=== PATIENT | male | born 1930 | race Caucasian/White ===

== ENCOUNTER 2016-09-21 03:30 | Emergency (ER) | payer OTHER ==
[~2016-09-21] VITALS: Ht 165.1 cm; Wt 71.2 kg
[2016-09-21 03:48] VITALS: BP 105/68
--- NOTE | 2016-09-21 04:01 | PHYS DOC ---
Past History Past Medical History: Diabetes, Hypertension, Prostatitis Past Surgical History: Appendectomy, Coronary Bypass Surgery Alcohol Use: None Drug Use: None Adult General Chief Complaint Chief Complaint: BLOOD IN URINE HPI HPI Patient is a 86 year old M who presents with hematuria. Patient states he's been having blood in his urine for the past day however woke up tonight and felt extremely weak and wanted to come the hospital. Patient saw on any blood thinners. Patient has no history of kidney stones. Patient denies any dysuria. Patient denies any fevers. Patient denies abdominal pain. Patient denies any chest pain or shortness of breath. Review of Systems Review of Systems GEN: Denies fevers, chills, sweats HEENT: Denies blurred vision, sore throat CV: Denies chest pain RESP: Denies shortness of air, cough GI: Denies n/v/d : Blood in his urine NEURO: Denies confusion, dizziness MSK: Denies weakness, joint pain/swelling Allergies Allergies Allergies Coded Allergies Type Severity Reaction Last Updated Verified Penicillins Allergy Unknown 04/02/16 Yes Physical Exam Physical Exam GEN.: No apparent distress. Alert and oriented. HEENT: Head is normocephalic, atraumatic NECK: Supple. LUNGS: CTAB. HEART: RRR, 4/6 systolic ejection murmur. Peripheral pulses intact ABDOMEN: Soft, nontender. Positive bowel sounds. EXTREMITIES: Without any cyanosis. NEUROLOGIC: Normal speech, normal tone PSYCHIATRIC: Normal affect, normal mood. SKIN: No ulcerations Current Patient Data Vital Signs Vital Signs Date Time Temp Pulse Resp B/P (MAP) Pulse Ox O2 Delivery O2 Flow Rate FiO2 09/21/16 03:48 98.2 64 16 100 Room Air EKG EKG Not performed [] Radiology/Procedures Radiology/Procedures [address] [address] IMAGING REPORT Signed PATIENT: NICHO HOOK ACCOUNT: [id number] : 1930 LOCATION: ER AGE: 86 SEX: M EXAM STATUS: REG ER ORD. PHYSICIAN: DAVID CASTILLO DO REASON: hematuria PROCEDURE: CT ABDOMEN PELVIS WO CONTRAST INDICATION: 105707.001 Creat. 1.8, w/o contrast. Hematuria, weakness, lower back pain today. Hx: Prostatitis, appendectomy, CABG. No priors. COMPARISON: None. TECHNIQUE: Axial CT images were obtained through the abdomen and pelvis without intravenous contrast. Limited assessment of solid organ structures and vasculature secondary to lack of intravenous contrast. One or more of the following individualized dose reduction techniques were utilized for this examination: 1. Automated exposure control; 2. Adjustment of the mA and/or kV according to patient size; 3. Use of iterative reconstruction technique. FINDINGS: There is some scattered lung nodules at the lung bases measuring up to about 4 mm. Linear opacities lower lungs. Coronary artery calcific atherosclerosis and aortic valve calcifications partially seen. Severe calcific atherosclerosis. Small fat-containing right inguinal hernia. No intrahepatic bile duct dilation. No peripancreatic edema. Spleen unremarkable. Multiple low-attenuation lesions in the bilateral kidneys measuring up to about 3 cm. Some of the larger 1's have the appearance of cysts and others are not well characterized on this exam. Possible 2 mm nonobstructive right renal stone. On the right side of the urinary bladder there is a high density structure seen on the right measuring up to 55 x 30 mm. Prostate is mildly prominent. Colonic diverticulosis. Appendix not well seen. Fat-containing umbilical hernia. There are couple of mildly prominent loops of small bowel in the right side of the abdomen measuring up to about 29 mm. Degenerative changes of spine. Degenerative changes of the right greater than left hip. Osseous demineralization.. [id number] T12 compression fracture. IMPRESSION: 1. High density material at the posterior lateral aspect of the urinary bladder on the right. Could be secondary to blood within the urinary bladder or a mass. 2. T12 compression fracture. If there is pain within the region this could be acute. If the age is unknown clinically MRI or bone scan could further evaluate. 3. Low-attenuation lesions in the bilateral kidneys. Some of the larger 1's have the appearance of cystic lesions but cannot exclude complex component on noncontrast exam. Either a follow-up CT, MRI or ultrasound renal protocol could further evaluate for complex component. 4. Multiple lung base nodules measuring up to 4 mm. 5. Couple of mildly prominent loops of small bowel in the right side of the abdomen but no high-grade transition point to suggest obstruction. Fleischner Society recommendation for solid lung nodule follow up. (Radiology 2005; 237; 395-400): In a low risk patient: <4mm - No follow up required. >4-6mm- 12 month follow up, if unchanged, no further follow up. >6-8mm- 6-12 month follow up, then at 18-24 months if no change. >8mm- 3, 9, 24 month follow up or consideration of PET/CT. In a high risk patient (history of smoking or other known risk factors): <4mm - 12 month follow up, if unchanged then no further follow up. >4-6mm- 6-12 month follow up, then at 18-24 months if no change. >6-8mm- 3-6 month follow up, then at 9-12 months and 24 months if no change >8mm- Same as for low risk patient. Electronically signed by: Chucho Trejo MD (09/21/2016 6:36 AM) [facility] DICTATED AND SIGNED BY: CHUCHO TREJO MD DATE: 09/21/16620 CC: MATT RAJAN MD; [facility]; DAVID CASTILLO DO ~ [] Course & Med Decision Making Course & Med Decision Making Pertinent Labs and Imaging studies reviewed. (See chart for details) ED course: Patient was seen and examined emergency room CBC, CMP, lipase, UA, CT scan abdomen and pelvis without contrast was ordered 0600: Care has been transitioned to Dr. Rajan who will follow-up on [labs], [ radiology], and final disposition of the patient. I took over care of patient at [address] Castillo. Patient's labs were reviewed and patient's CT scan showed results of possible mass versus blood clots in the patient's bladder. A Ochoa catheter was inserted into the bladder and patient was irrigated with removal of clots. Patient's urine was clearing upon irrigation of 1 L of fluids. The patient is in no acute distress at this time. I spoke with the patient, his , and son regarding plan of care. The patient is appropriate for outpatient follow-up at this time. The patient was referred to [facility]. Recommended follow-up in 3-4 days. I also recommended that the patient follow- up with his primary doctor tomorrow for reevaluation. Advised oral hydration and to avoid any use of blood thinning medication including aspirin until symptoms have resolved and he has obtained follow-up. Advised return emergency department for any worsening symptoms. Patient and patient's family voiced understanding and in agreement with treatment plan. [] Dragon Disclaimer Dragon Disclaimer This chart was dictated in whole or in part using Voice Recognition software in a busy, high-work load, and often noisy Emergency Department environment. It may contain unintended and wholly unrecognized errors or omissions. Departure Departure: Impression: Primary Impression: Hematuria Additional Impressions: Lung nodules Kidney cysts Disposition: HOME, SELF-CARE Condition: IMPROVED Referrals: [facility] (PCP) Patient Instructions: Hematuria, Adult Additional Instructions: Follow up with your primary care doctor tomorrow. Call to schedule an appointment with [facility] at [facility] in the next 3-4 days. Their phone number is . Drink plenty of fluids and avoid use of any blood thinners including aspirin until your symptoms have resolved and you have been reevaluated. Your CT imaging also showed evidence of lung nodules and kidney cysts that will need to be followed up with repeat imaging as ordered by your primary doctor. Return to the emergency department for any worsening symptoms. Problem Qualifiers Primary Impression: Hematuria Hematuria type: gross Qualified Codes: R31.0 - Gross hematuria DAVID CASTILLO DO Sep 21, 2016 04:01 MATT RAJAN MD Sep 21, 2016 07:23
[2016-09-21] MEDS ORDERED: CONTRAST GIVEN MC PRN (04:15)
[2016-09-21] MEDS ORDERED: IOHEXOL 300 MG/ML 75 ML VIAL. IV ONE (04:30)
[2016-09-21 05:32] LABS: BASO # 0.1 x10^3/uL (0.0-0.2); BASO % 1 % (0-3); EOS # 0.2 x10^3/uL (0.0-0.7); EOS % 2 % (0-3); HEMATOCRIT 40.8 % (39.0-53.0); HEMOGLOBIN 14.1 g/dL (13.0-17.5); LYMPH # 2.3 x10^3/uL (1.0-4.8); LYMPH % 25 % (24-48); MEAN CORPUSCULAR HEMOGLOBIN 33 pg (25-35); MEAN CORPUSCULAR HGB CONC 35 g/dL (31-37); MEAN CORPUSCULAR VOLUME 95 fL (79-100); MONO # 1.5 x10^3/uL (0.0-1.1); MONO % 16 % (0-9); NEUT # 5.2 x10^3uL (1.8-7.7); NEUT % 57 % (31-73); PLATELET COUNT 226 x10^3/uL (140-400); RED BLOOD COUNT 4.28 x10^6/uL (4.30-5.70); RED CELL DISTRIBUTION WIDTH 12.5 % (11.5-14.5); WHITE BLOOD COUNT 9.2 x10^3/uL (4.0-11.0)
[2016-09-21 05:40] LABS: ALBUMIN 3.4 g/dL (3.4-5.0); ALBUMIN/GLOBULIN RATIO 0.9 (1.0-1.7); CALCIUM 8.9 mg/dL (8.5-10.1); CREATININE 1.8 mg/dL (0.7-1.3); TOTAL BILIRUBIN 0.8 mg/dL (0.2-1.0); TOTAL PROTEIN 7.2 g/dL (6.4-8.2)
[2016-09-21 05:51] LABS: CLARITY,URINE BLOODY; COLOR,URINE RED; GLUCOSE,URINE NEG (NEG); NITRITE,URINE POS (NEG)
[2016-09-21 05:52] LABS: BACTERIA,URINE MANY /HPF (0-FEW); RBC,URINE TNTC /HPF (0-2); SQUAMOUS EPITHELIAL CELL,UR OCC /LPF; WBC,URINE 20-40 /HPF (0-4)
--- NOTE | 2016-09-21 06:40 | RAD ---
INDICATION: 230903.001 Creat. 1.8, w/o contrast. Hematuria, weakness, lower back pain today. Hx: Prostatitis, appendectomy, CABG. No priors. COMPARISON: None. TECHNIQUE: Axial CT images were obtained through the abdomen and pelvis without intravenous contrast. Limited assessment of solid organ structures and vasculature secondary to lack of intravenous contrast. One or more of the following individualized dose reduction techniques were utilized for this examination: 1. Automated exposure control; 2. Adjustment of the mA and/or kV according to patient size; 3. Use of iterative reconstruction technique. FINDINGS: There is some scattered lung nodules at the lung bases measuring up to about 4 mm. Linear opacities lower lungs. Coronary artery calcific atherosclerosis and aortic valve calcifications partially seen. Severe calcific atherosclerosis. Small fat-containing right inguinal hernia. No intrahepatic bile duct dilation. No peripancreatic edema. Spleen unremarkable. Multiple low-attenuation lesions in the bilateral kidneys measuring up to about 3 cm. Some of the larger 1's have the appearance of cysts and others are not well characterized on this exam. Possible 2 mm nonobstructive right renal stone. On the right side of the urinary bladder there is a high density structure seen on the right measuring up to 55 x 30 mm. Prostate is mildly prominent. Colonic diverticulosis. Appendix not well seen. Fat-containing umbilical hernia. There are couple of mildly prominent loops of small bowel in the right side of the abdomen measuring up to about 29 mm. Degenerative changes of spine. Degenerative changes of the right greater than left hip. Osseous demineralization.. Thpd-iq-bilwnaeo T12 compression fracture. IMPRESSION: 1. High density material at the posterior lateral aspect of the urinary bladder on the right. Could be secondary to blood within the urinary bladder or a mass. 2. T12 compression fracture. If there is pain within the region this could be acute. If the age is unknown clinically MRI or bone scan could further evaluate. 3. Low-attenuation lesions in the bilateral kidneys. Some of the larger 1's have the appearance of cystic lesions but cannot exclude complex component on noncontrast exam. Either a follow-up CT, MRI or ultrasound renal protocol could further evaluate for complex component. 4. Multiple lung base nodules measuring up to 4 mm. 5. Couple of mildly prominent loops of small bowel in the right side of the abdomen but no high-grade transition point to suggest obstruction. Fleischner Society recommendation for solid lung nodule follow up. (Radiology 2005; 237; 395-400): In a low risk patient: <4mm - No follow up required. >4-6mm- 12 month follow up, if unchanged, no further follow up. >6-8mm- 6-12 month follow up, then at 18-24 months if no change. >8mm- 3, 9, 24 month follow up or consideration of PET/CT. In a high risk patient (history of smoking or other known risk factors): <4mm - 12 month follow up, if unchanged then no further follow up. >4-6mm- 6-12 month follow up, then at 18-24 months if no change. >6-8mm- 3-6 month follow up, then at 9-12 months and 24 months if no change >8mm- Same as for low risk patient. Electronically signed by: Rafa Ventura MD (09/21/2016 6:36 AM) [facility]
== END 2016-09-21 07:40 | disposition home or self-care (01) ==
LOC: ER 03:30
DX: R31.9 Hematuria, unspecified (principal); R91.8 Other nonspecific abnormal finding of lung field; N28.1 Cyst of kidney, acquired; E11.9 Type 2 diabetes mellitus without complications; I10 Essential (primary) hypertension; Z90.49 Acquired absence of other specified parts of digestive tract; Z95.1 Presence of aortocoronary bypass graft; Z88.0 Allergy status to penicillin
CPT/HCPCS: 36415; 51702; 74176; 80053; 81001; 83690; 85027; 87086; 99285-25

== ENCOUNTER 2017-02-16 14:08 | Emergency (ER) | payer OTHER ==
[~2017-02-16] VITALS: Ht 165.1 cm; Wt 71.2 kg
[2017-02-16] MEDS ORDERED: IV NORMAL SALINE 500ML 500 ML IV ONE (14:30)
--- NOTE | 2017-02-16 14:46 | EKG ---
[address] [address] Test Date: 2017-02-16 Test Time: 14:40:02 Pat Name: NICHO HOOK Department: Room: Gender: M Home Care Physical Therapist: JILLIAN : 1930 Requested By: MAXIMILIAN FRANCE Order Number: [id number] Reading MD: González Matson Measurements Intervals [place] Rate: 75 P: -59 RI: 214 QRS: 83 QRSD: 112 T: 56 QT: 402 QTc: 452 Interpretive Statements SINUS RHYTHM LOW LIMB LEAD VOLTAGE QRS(T) CONTOUR ABNORMALITY CONSIDER ANTEROLATERAL MYOCARDIAL DAMAGE POSSIBLY ABNORMAL ECG Electronically Signed On 02-20-2017 10:58:11 [facility]UNTER by González Matson
[2017-02-16 14:57] LABS: BASO % 0 % (0-3); EOS # 0.1 x10^3/uL (0.0-0.7); EOS % 1 % (0-3); HEMOGLOBIN 15.2 g/dL (13.0-17.5); LYMPH # 1.7 x10^3/uL (1.0-4.8); LYMPH % 15 % (24-48); MEAN CORPUSCULAR HEMOGLOBIN 34 pg (25-35); MEAN CORPUSCULAR HGB CONC 35 g/dL (31-37); MEAN CORPUSCULAR VOLUME 95 fL (79-100); MONO # 1.6 x10^3/uL (0.0-1.1); MONO % 14 % (0-9); NEUT # 7.9 x10^3uL (1.8-7.7); NEUT % 70 % (31-73); PLATELET COUNT 237 x10^3/uL (140-400); RED BLOOD COUNT 4.53 x10^6/uL (4.30-5.70); RED CELL DISTRIBUTION WIDTH 12.7 % (11.5-14.5); WHITE BLOOD COUNT 11.3 x10^3/uL (4.0-11.0)
[2017-02-16 15:08] LABS: CALCIUM 9.1 mg/dL (8.5-10.1); POTASSIUM 3.7 mmol/L (3.5-5.1)
--- NOTE | 2017-02-16 15:26 | RAD ---
PQRS Compliance Statement: One or more of the following individualized dose reduction techniques were utilized for this examination: 1. Automated exposure control 2. Adjustment of the mA and/or kV according to patient size 3. Use of iterative reconstruction technique CT head and cervical spine without contrast 02/16/2017 2:49 PM INDICATION: Headache, dizziness and neck stiffness. COMPARISON: None available TECHNIQUE: Multiple axial CT images of the head were obtained from skull base through the vertex without intravenous contrast. Multiple axial CT images of the cervical spine were obtained without intravenous contrast. Coronal and sagittal reformats are provided. FINDINGS: Head: Ventricles, sulci and basal cisterns are prominent, compatible with generalized cerebral volume loss. There is low attenuation the periventricular white matter compatible with chronic small vessel ischemic changes.. There is no hydrocephalus. Rueda-white matter differentiation is normal. There is no acute intracranial hemorrhage. There is no mass, mass effect or midline shift. Posterior fossa is normal in appearance. Visualized portions of the orbits are normal. Paranasal sinuses are well aerated. Mastoid air cells are well aerated. Scalp and calvaria are normal. Cervical spine: Alignment of the cervical spine is normal. Skull base is intact. Craniocervical junction is normal in appearance. Atlantoaxial articulation is normal. Vertebral body heights are maintained without evidence for acute fracture. There is anterolisthesis of C3 on C4 with minimal retrolisthesis of C4 on C5 and C5 on C6. Lucencies involving the C3, C4, C5 and C6 vertebral bodies may be secondary to osteopenia, however underlying process such as biloma may have similar appearance. No definite acute fracture. Severe cervical spondylosis is present. Moderate multilevel facet arthropathy. There is mild to moderate spinal canal stenosis from C3-C4 through C6-C7. There is minimal anterolisthesis of C7 on T1. Tonsilloliths are identified in the right palatine tonsil. There is a 9 mm hypodense collection in the left palatine tonsil which may be retained fluid versus tiny developing tonsillar abscess. Mild atherosclerotic changes are identified at the carotid bifurcations. There is no prevertebral soft tissue swelling. Thyroid gland is normal in appearance. Visualized portions of the lung apices are normal without evidence for suspicious pulmonary nodule or infiltrate. IMPRESSION: 1. No acute intracranial hemorrhage. Low attenuation the periventricular white matter is compatible with chronic small vessel ischemic changes. Mild generalized cerebral volume loss. 2. There is anterolisthesis of C3 on C4 with minimal retrolisthesis of C4 on C5 and C5 on C6. Lucencies involving the C3, C4, C5 and C6 vertebral bodies may be secondary to osteopenia, however underlying process such as biloma may have similar appearance. No definite acute fracture. Severe cervical spondylosis is present. 3. There is a 9 mm hypodense collection in the left palatine tonsil which may be retained fluid versus tiny developing tonsillar abscess. Electronically signed by: Makenna Sharma MD (02/16/2017 3:23 PM) [facility] [place]
[2017-02-16 16:02] LABS: BACTERIA,URINE 0 /HPF (0-FEW); BILIRUBIN,URINE NEG (NEG); CLARITY,URINE CLEAR; COLOR,URINE YELLOW; GLUCOSE,URINE NEG (NEG); NITRITE,URINE NEG (NEG); RBC,URINE OCC /HPF (0-2); SQUAMOUS EPITHELIAL CELL,UR OCC /LPF; UROBILINOGEN,URINE 0.2 mg/dL (0.2 mg/dL)
[2017-02-16] MEDS ORDERED: VANCOMYCIN PER PHARMACY MC PRN (16:45)
[2017-02-16] MEDS ORDERED: VANCOMYCIN 1.75 GM in IV NORMAL SALINE 500ML 500 ML IV ONE ×4 (17:00)
[2017-02-16] MEDS ORDERED: ACYCLOVIR SODIUM 620 MG in IV DEXTROSE 5% 250 ML IV ONE ×4 (17:00)
[2017-02-16] MEDS ORDERED: MEROPENEM IV Push 1 GM VIAL. IVP ONE ×2 (17:00)
[2017-02-16 17:20] LABS: CSF CLARITY CLEAR; CSF COLOR COLORLESS; CSF RBC COUNT 0; CSF WBC COUNT 0
[2017-02-16] MEDS ORDERED: methylPREDNISolone SOD SUCC PF 125 MG/2 ML VIAL. IV ONE (17:30)
--- NOTE | 2017-02-16 17:35 | PHYS DOC ---
Past History Past Medical History: Diabetes, Hypertension, Prostatitis Past Surgical History: Appendectomy, Coronary Bypass Surgery, Other Alcohol Use: None Drug Use: None Adult General Chief Complaint Chief Complaint: Neck Pain HPI HPI 86-year-old male presenting to the emergency department with neck stiffness for the last 2 days. He denies having any fevers at home or headache. He has a history of an appendectomy and a history of coronary artery bypass surgery. He has pain that is sharp shooting associated with neck stiffness and without alleviating factors. He denies vision changes numbness weakness or tingling. He denies any recent trauma or injury. The patient took 2 aspirin prior to arrival for his pain. Review of systems is negative for chest pain shortness of breath fevers or chills. All other review of systems is negative unless otherwise noted in history of present illness. ED course: 86-year-old male presenting to the emergency department today with neck stiffness. On arrival the patient is afebrile but has clear nuchal rigidity. Otherwise abdomen is soft and nontender. Normal neurologic exam. Blood work obtained along with head neck CT. We also performed a lumbar puncture which we sent for analysis. IV antibiotics and IV corticosteroids ordered. IV acyclovir ordered as well. CBC shows mild leukocytosis. Hemoglobin. Coagulation studies are unremarkable. Urinalysis shows small leuk esterase without any bacteria. Chemistry panel shows mild elevation in proBNP, however the patient is saturating well and breathing comfortably on room air. Troponin came back as just above the reference range of normal at 0.06. Lactic acid came back at 1.9. CT head and neck as above. Patient will likely need an MRI of the cervical spine. Patient was given aspirin prior to arrival. Patient will likely need cardiology consultation and serial troponins upon admission. EKG obtained and reviewed by myself shows sinus rhythm with a regular rate. ST segments show no ST elevation. Patient has subtle less than [address] depression in leads V4 and V5. Patient will likely need neurology and infectious disease consultation as well. I discussed the case with Dr. Choi who asked the [facility] to [facility] given the need for MRI. Antibiotics given prior to csf analysis returning to cover for possible bacterial meningitis. The patient was then admitted to [facility] for further evaluation workup and care. Review of Systems Review of Systems SEE ABOVE. Current Medications Current Medications Current Medications Medications (Trade) Dose Ordered Sig/Osiel Start Time Stop Time Status Last Admin Dose Admin Acyclovir Sodium 620 mg/Dextrose 262.4 ml @ 262.4 mls/ hr 1X ONCE 02/16/17 17:00 02/16/17 17:59 Fentanyl Citrate (Fentanyl 2ml Vial) 25 mcg PRN Q30MIN PRN 02/16/17 14:30 02/16/17 15:41 25 MCG Meropenem (Merrem) 1 gm 1X ONCE 02/16/17 17:00 02/16/17 17:01 DC Meropenem 2 gm/ Sodium Chloride 100 ml @ 200 mls/hr Q8HRS 02/16/17 22:00 UNV Sodium Chloride 500 ml @ 0 mls/hr 1X ONCE 02/16/17 14:30 02/16/17 14:31 DC 02/16/17 15:10 500 MLS/HR Vancomycin HCl (Vanco Per Pharmacy) 1 each PRN DAILY PRN 02/16/17 16:45 Vancomycin HCl 1.75 gm/Sodium Chloride 500 ml @ 250 mls/hr 1X ONCE 02/16/17 17:00 02/16/17 18:59 Allergies Allergies Allergies Coded Allergies Type Severity Reaction Last Updated Verified Penicillins Allergy Unknown 04/02/16 Yes Physical Exam Physical Exam SEE ABOVE Constitutional: Well developed, well nourished, no acute distress, non-toxic appearance. HENT: Normocephalic, atraumatic, bilateral external ears normal, oropharynx moist, no oral exudates, nose normal. [] Eyes: PERRLA, EOMI, conjunctiva normal, no discharge. [] Neck: nuchal rigidity present. non tender midline without stepoffs, supple, no stridor. Cardiovascular:Heart rate regular rhythm, no murmur [] Lungs & Thorax: Bilateral breath sounds clear to auscultation Abdomen: Bowel sounds normal, soft, no tenderness, no masses, no pulsatile masses. [] Skin: Warm, dry, no erythema, no rash. no petechia Back: No tenderness, no CVA tenderness. [] Extremities: No tenderness, no cyanosis, no clubbing, ROM intact, no edema. Neurologic: Alert and oriented X 3, normal motor function, normal sensory function, no focal deficits noted. [] Psychologic: Affect normal, judgement normal, mood normal. [] Current Patient Data Vital Signs Vital Signs Date Time Temp Pulse Resp B/P (MAP) Pulse Ox O2 Delivery O2 Flow Rate FiO2 02/16/17 15:41 22 96 02/16/17 15:11 74 164/91 (115) Room Air 02/16/17 14:08 98.4 Lab Results Laboratory Tests Test 02/16/17 14:36 02/16/17 15:34 02/16/17 16:25 White Blood Count 11.3 x10^3/uL (4.0-11.0) H Red Blood Count 4.53 x10^6/uL (4.30-5.70) Hemoglobin 15.2 g/dL (13.0-17.5) Hematocrit 43.0 % (39.0-53.0) Mean Corpuscular Volume 95 fL (79-100) Mean Corpuscular Hemoglobin 34 pg (25-35) Mean Corpuscular Hemoglobin Concent 35 g/dL (31-37) Red Cell Distribution Width 12.7 % (11.5-14.5) Platelet Count 237 x10^3/uL (140-400) Neutrophils (%) (Auto) 70 % (31-73) Lymphocytes (%) (Auto) 15 % (24-48) L Monocytes (%) (Auto) 14 % (0-9) H Eosinophils (%) (Auto) 1 % (0-3) Basophils (%) (Auto) 0 % (0-3) Neutrophils # (Auto) 7.9 x10^3uL (1.8-7.7) H Lymphocytes # (Auto) 1.7 x10^3/uL (1.0-4.8) Monocytes # (Auto) 1.6 x10^3/uL (0.0-1.1) H Eosinophils # (Auto) 0.1 x10^3/uL (0.0-0.7) Basophils # (Auto) 0.0 x10^3/uL (0.0-0.2) Prothrombin Time 10.4 SEC (9.4-11.4) Prothrombin Time INR 1.0 (0.9-1.1) PTT 25 SEC (23-33) Sodium Level 136 mmol/L (136-145) Potassium Level 3.7 mmol/L (3.5-5.1) Chloride Level 100 mmol/L (98-107) Carbon Dioxide Level 26 mmol/L (21-32) Anion Gap 10 (6-14) Blood Urea Nitrogen 26 mg/dL (8-26) Creatinine 1.0 mg/dL (0.7-1.3) Estimated GFR (Cockcroft-Gault) 71.0 Glucose Level 155 mg/dL (70-99) H Lactic Acid Level 1.9 mmol/L (0.4-2.0) Calcium Level 9.1 mg/dL (8.5-10.1) Troponin I Quantitative 0.060 ng/mL (0-0.055) H OQ-[id number]-[id number]-Type Natriuretic Peptide 1290 pg/mL (0-449) H Urine Collection Type Unknown Urine Color Yellow Urine Clarity Clear Urine pH 5.0 Urine Specific Neeses 1.020 Urine Protein Trace (NEG-TRACE) Urine Glucose (UA) Neg mg/dL (NEG) Urine Ketones (Stick) Neg mg/dL (NEG) Urine Blood Mod (NEG) Urine Nitrite Neg (NEG) Urine Bilirubin Neg (NEG) Urine Urobilinogen Dipstick 0.2 mg/dL (0.2 mg/dL) Urine Leukocyte Esterase Small (NEG) Urine RBC Occ /HPF (0-2) Urine WBC 5-10 /HPF (0-4) Urine Squamous Epithelial Cells Occ /LPF Urine Bacteria 0 /HPF (0-FEW) Urine Mucus Mod /LPF CSF Total Protein 66.2 mg/dL (15.0-45.0) H EKG EKG [] Radiology/Procedures Radiology/Procedures [][address] [address] IMAGING REPORT Signed PATIENT: NICHO HOOK ACCOUNT: [id number] : 1930 LOCATION: ER AGE: 86 SEX: M EXAM STATUS: REG ER ORD. PHYSICIAN: MAXIMILIAN FRANCE MD REASON: headache and neck stiffness PROCEDURE: CT HEAD AND CERVICAL SPINE WO ADDENDUM Addendum: I was asked to review the dictation by a different radiologist and comment on a possible typo error in the CT cervical spine. There is a typo error both in the body of dictation ( line #6) and impression #2,line 3 . It should read as Lucencies involving C3, C4, C5 and C6 vertebral bodies may be secondary to osteopenia, however underlying processes such as myeloma (NOT BILOMA ) may have similar appearance. Electronically signed by: Ros Reeves MD (02/16/2017 3:54 PM) [facility] DICTATED AND SIGNED BY: ROS REEVES MD DATE: 02/16/17 1551 CC: MAXIMILIAN FRANCE MD; [facility] RS Compliance Statement: One or more of the following individualized dose reduction techniques were utilized for this examination: 1. Automated exposure control 2. Adjustment of the mA and/or kV according to patient size 3. Use of iterative reconstruction technique CT head and cervical spine without contrast 02/16/2017 2:49 PM INDICATION: Headache, dizziness and neck stiffness. COMPARISON: None available TECHNIQUE: Multiple axial CT images of the head were obtained from skull base through the vertex without intravenous contrast. Multiple axial CT images of the cervical spine were obtained without intravenous contrast. Coronal and sagittal reformats are provided. FINDINGS: Head: Ventricles, sulci and basal cisterns are prominent, compatible with generalized cerebral volume loss. There is low attenuation the periventricular white matter compatible with chronic small vessel ischemic changes.. There is no hydrocephalus. Rueda-white matter differentiation is normal. There is no acute intracranial hemorrhage. There is no mass, mass effect or midline shift. Posterior fossa is normal in appearance. Visualized portions of the orbits are normal. Paranasal sinuses are well aerated. Mastoid air cells are well aerated. Scalp and calvaria are normal. Cervical spine: Alignment of the cervical spine is normal. Skull base is intact. Craniocervical junction is normal in appearance. Atlantoaxial articulation is normal. Vertebral body heights are maintained without evidence for acute fracture. There is anterolisthesis of C3 on C4 with minimal retrolisthesis of C4 on C5 and C5 on C6. Lucencies involving the C3, C4, C5 and C6 vertebral bodies may be secondary to osteopenia, however underlying process such as biloma may have similar appearance. No definite acute fracture. Severe cervical spondylosis is present. Moderate multilevel facet arthropathy. There is mild to moderate spinal canal stenosis from C3-C4 through C6-C7. There is minimal anterolisthesis of C7 on T1. Tonsilloliths are identified in the right palatine tonsil. There is a 9 mm hypodense collection in the left palatine tonsil which may be retained fluid versus tiny developing tonsillar abscess. Mild atherosclerotic changes are identified at the carotid bifurcations. There is no prevertebral soft tissue swelling. Thyroid gland is normal in appearance. Visualized portions of the lung apices are normal without evidence for suspicious pulmonary nodule or infiltrate. IMPRESSION: 1. No acute intracranial hemorrhage. Low attenuation the periventricular white matter is compatible with chronic small vessel ischemic changes. Mild generalized cerebral volume loss. 2. There is anterolisthesis of C3 on C4 with minimal retrolisthesis of C4 on C5 and C5 on C6. Lucencies involving the C3, C4, C5 and C6 vertebral bodies may be secondary to osteopenia, however underlying process such as biloma may have similar appearance. No definite acute fracture. Severe cervical spondylosis is present. 3. There is a 9 mm hypodense collection in the left palatine tonsil which may be retained fluid versus tiny developing tonsillar abscess. Electronically signed by: Lizzette Cox MD (02/16/2017 3:23 PM) [facility] [place]ATED AND SIGNED BY: LIZZETTE COX MD DATE: 02/16/17 1517 CC: MAXIMILIAN FRANCE MD; [facility] ~ Course & Med Decision Making Course & Med Decision Making Pertinent Labs and Imaging studies reviewed. (See chart for details) [] Dragon Disclaimer Dragon Disclaimer This electronic medical record was generated, in whole or in part, using a voice recognition dictation system. Departure Departure: Impression: Primary Impression: Meningitis Disposition: [facility] Condition: IMPROVED Referrals: [facility] (PCP) Critical Care Time Critical care time was [40] minutes exclusive of procedures. Time was spent evaluating the patient, ordering the administration of antibiotics and other medications, reevaluating the patient, discussing the case with the admitting provider and documenting. Lumbar Puncture Lumbar Indication: []Nuchal rigidity Consent: []Verbal and written obtained. Procedure: The patient was placed in the left lateral position and the appropriate landmarks were identified. The area was prepped and draped in the usual sterile fashion. Anesthesia was obtained using 1% lidocaine. A spinal needle was inserted at the L4-L5 level with the stylet in place until spinal fluid was returned. Opening pressure was 11cm h20. At this point 4cc of fluid was obtained and sent to lab. The stylet was then replaced and the needle was withdrawn. A sterile dressing was placed over the site and the patient was placed in the supine position. The patient tolerated the procedure well. Complications: none MAXIMILIAN FRANCE MD Feb 16, 2017 17:35
[2017-02-16 18:33] VITALS: BP 164/95
[2017-02-16] MEDS ORDERED: MEROPENEM 2 GM in IV NORMAL SALINE 100ML 100 ML IV SCH (22:00)
[2017-02-19 15:07] LABS: ALBUMIN,SERUM 4.1 g/dL (3.5-4.7); CSF IGG INDEX 0.5 (0.0-0.7)
== END 2017-02-16 18:46 | disposition short-term general hospital (02) ==
LOC: ER 14:08
DX: G03.9 Meningitis, unspecified (principal); R51 Headache; E11.9 Type 2 diabetes mellitus without complications; I10 Essential (primary) hypertension; Z95.1 Presence of aortocoronary bypass graft; Z88.0 Allergy status to penicillin
CPT/HCPCS: 36415; 62270; 70450; 72125; 80048; 81001; 82787; 83605; 83880; 84157; 84484; 85025; 85610; 85730; 87070; 87086; 89051; 93005; 96361; 96365; 96368; 96375; 96376; 99291; J0133; J2185; J2930; J3010; J3370; J7040

== ENCOUNTER 2020-01-24 07:52 | Inpatient (IN) | payer MEDICARE, OTHER ==
[~2020-01-24] VITALS: Ht 167.6 cm; Wt 64.4 kg
[2020-01-24] MEDS ORDERED: IV NORMAL SALINE 1,000ML 1,000 ML IV ONE (08:00)
[2020-01-24] MEDS ORDERED: FAMOTIDINE 20 MG/2 ML VIAL IVP ONE (08:00)
--- NOTE | 2020-01-24 08:04 | PHYS DOC ---
Past History Past Medical History: Cancer (bladder), Diabetes, Hypertension, Prostatitis Additional Past Medical Histor: Osteoarthropathy, COVID-19 Past Medical History Unable to obtain due to altered mental status Past Surgical History: Appendectomy, Coronary Bypass Surgery, Other Past Surgical History Unable to obtain due to altered mental status Alcohol Use: None Drug Use: None Social History Unable to obtain due to altered mental status General Adult EDM: Chief Complaint: FLANK PAIN HPI: HPI: 89-year-old male presents from [facility] with report of altered mental status and redness to right forearm which started yesterday. [facility] staff reports patient had an IV to that right forearm that had infiltrated and there was concern for possible thrombophlebitis. Patient had been started on Keflex. Patient reportedly started to have some chest discomfort as well as abdominal pain that started this morning. Patient also was noted to have bilateral flank ecchymosis of which etiology is unknown. Nursing staff denies known falls or trauma. Patient had tested positive for COVID-19 at the [facility]. Review of systems limited secondary to altered mental status. Review of Systems: Review of Systems: Cardiovascular: Reports chest pain GI: Reports abdominal pain Musculoskeletal: Reports right forearm pain Integument: Reports right forearm redness and swelling Neurologic: Reports altered mental status Review of systems limited secondary to altered mental status. Current Medications: Current Meds: Current Medications Medications (Trade) Dose Ordered Sig/Osiel Start Time Stop Time Status Last Admin Dose Admin Famotidine (Pepcid Vial) 20 mg 1X ONCE 01/24/20 08:00 01/24/20 08:01 UNV Fentanyl Citrate (Fentanyl 2ml Vial) 50 mcg 1X ONCE 01/24/20 08:00 01/24/20 08:01 UNV Sodium Chloride 1,000 ml @ 1,000 mls/hr 1X ONCE 01/24/20 08:00 01/24/20 08:59 UNV Allergies: Allergies: Allergies Coded Allergies Type Severity Reaction Last Updated Verified Penicillins Allergy Unknown 04/02/16 Yes Physical Exam: PE: Constitutional: Well developed, well nourished, no acute distress, non-toxic appearance HENT: Normocephalic, atraumatic Eyes: PERRL, EOMI, conjunctiva normal, no discharge Neck: Normal range of motion, no tenderness, supple Lungs & Thorax: No respiratory distress, equal chest rise and fall Abdomen: Soft, no tenderness, no guarding/rebound tenderness Skin: Warm, dry, no erythema, no rash Back: Tenderness to bilateral flanks with swelling and ecchymosis noted Extremities: Right dorsal forearm swelling and surrounding erythema which is te nder to palpation, ROM intact, 1+ edema to right forearm Neurologic: Alert and oriented x name, GCS 14 (eye 4, verbal 4, motor 6), no focal deficits noted Psychologic: Limited, judgment abnormal EKG: EKG: @0826 NSR at 78bpm, NO ST elevatin, occasional PVC, [id number], QT/QTc 422/485ms Radiology/Procedures: Radiology/Procedures: PROCEDURE: VENOUS UPPER EXTREMITY RIGHT Clinical indications: Right arm swelling with erythema. Covid positive. Findings: Duplex sonography (including burnett scale evaluation and color flow and waveform spectral analysis) of the inferior aspect of the right internal jugular vein was performed. Duplex sonography (including burnett scale evaluation and color flow and waveform spectral analysis) of the right subclavian vein as far as it could be visualized prior to it's descent underneath the medial aspect of the clavicle was performed. Duplex sonography (including burnett scale evaluation and color flow and waveform spectral analysis) of the right axillary, brachial, basilic, cephalic, ulnar and radial veins was performed. Normal compressibility and augmentation of color Doppler flow after forearm compression is seen. Color-flow completely fills the lumen of these veins. Therefore, there are no sonographic findings of deep venous thrombosis within these veins. Impression: There are no sonographic findings of deep venous thrombosis within the veins discussed above of the right upper extremity. Electronically signed by: Miguel Kim MD (01/24/2020 9:23 AM) [id number] PROCEDURE: CT HEAD AND CERVICAL SPINE WO CT head without contrast. CT cervical spine without contrast. PQRS statement: CT scans at this facility use dose reduction including either automated exposure control, iterative reconstructions, and /or weight based radiation dosing via mA and kV modification when appropriate to reduce radiation dose to as low as reasonably achievable. HISTORY: Confusion. Head and neck pain. COMPARISON: CT head and cervical spine February 16, 2017. CT head findings: There is a 1 cm linear ischemic infarct of the left cerebellum image 8 new from prior imaging in 2018 although the appearance is more typical of a chronic rather than an acute infarct. Generalized brain atrophy stable. No intracranial hemorrhage, mass or hydrocephalus. Cerebral periventricular white matter hypoattenuation is stable likely changes of chronic vessel ischemic disease. Dolichoectasia and calcified plaque intracranial arteries stable. Orbits, mastoids and bones are unremarkable. IMPRESSION: 1. 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 This is new from CT imaging in 2018. 2. Otherwise stable exam. CT cervical spine findings: Craniocervical junction intact. Cervical vertebral body height and alignment intact. No fracture of the cervical spine. Bone demineralization may indicate osteoporosis. Multilevel cervical disc height loss, disc osteophytes and uncovertebral spurring and facet spurring with spinal canal and neural foraminal stenoses. There appears to be interbody osseous fusion due to advanced disc disease or due to prior discectomy at C3-C4 and C4-C5. Soft tissue edema left lower neck and 1 focus of emphysema near the region of the lower left internal jugular vein. IMPRESSION: 1. No acute osseous injury of the cervical spine. 2. Cervical disc disease as described above. 3. 2 cm soft tissue nodule with calcification at the right parotid gland similar to the study from 2018, this could represent a salivary gland tumor orbits are abdominal aorta aneurysm. 4. Soft tissue edema of the left lower neck and a 1 cm focus of soft tissue emphysema at the left neck near the region of the lower left internal jugular vein. This could be sequela of recent vascular access, versus a penetrating injury or soft tissue infection. Electronically signed by: Walt Bull MD (01/24/2020 10:02 AM) [facility] PROCEDURE: CT ANGIO CHEST W ABD PEL W/ Examination: CT ANGIO CHEST W ABD PEL W/ History: chest and abdominal pain, hx of COVID, bruising Comparison/Correlation: 09/21/2016 CT abdomen and pelvis without contrast Findings: Axial images of the chest, abdomen, and pelvis were obtained following IV contrast. Sagittal and coronal reformatted images were provided. Maximum intensity projection images are provided. Images of the chest were obtained according to pulmonary angiography protocol. Images of the abdomen and pelvis were obtained according to angiographic protocol. There is significant contrast opacification of collaterals involving the left chest wall and the azygos vein. There is no significant opacification of contrast in the superior aspect of the superior vena cava. Left brachiocephalic vein is diminutive. Gas is noted within the left internal jugular vein and left brachiocephalic vein. Correlate for recent line placement attempt. Posterior paratracheal air cyst noted. Mucus within the superior thoracic trachea noted. No pneumothorax. Sternal wires and mediastinal clips are present. Marked [place] coronary arterial calcifications present. Marked mitral annular calcification noted. Marked mitral annular calcification is present. Ascending thoracic diameter 4.2 cm present. Bibasilar costophrenic sulcus atelectasis is present. Small left costophrenic pleural effusion is present. Suboptimal opacification of distal pulmonary arterial vasculature along with respiratory motion limiting evaluation especially of the lung bases. No conclusive thromboembolic disease is identified. Central pulmonary arterial vasculature opacifies well with contrast with no thromboembolic disease identified. Subtle emphysematous involvement of the lung weir noted. Fatty infiltration of the liver is present. Liver is unremarkable. Spleen is unremarkable. Pancreas is normal. Adrenal glands are unremarkable. Bilateral upper pole renal cysts are present. Small lower pole renal cysts are also present and fewer in number. No hydronephrosis. Significant calcific involvement of the abdominal aortic wall is present. Gallbladder fossa is unremarkable. Moderate quantity of stool in the colon is noted. Diverticulosis is present especially in the sigmoid colon. No enlarged abdominal or pelvic lymph nodes. No ascites or pelvic free fluid. Celiac and superior mesenteric arteries are patent. Calcific involvement of the origins noted without significant stenosis. Ectasia of the celiac artery is diffuse. Kinking and stenosis of the proximal inferior mesenteric artery is notable. Marked diffuse calcific involvement of the abdominal aorta is present. No abdominal aortic aneurysm. Mild ectasia of the common iliac arteries bilaterally no significant stenoses of the iliac arterial vasculature. At least 60 percent stenosis of the right main renal artery at its origin and proximal aspect noted. Approximately 60 percent or greater stenosis involving the proximal left main renal artery including torsion is noted. Rim-enhancing fluid collection within the right rectus abdominis muscle at the upper pelvic level is noted on axial image 103. The fluid collection has a density of 27 on this postcontrast exam. Fluid collections of moderately high density and low-density involving the inferior left rectus abdominous muscle extending to the upper pelvic region noted. Largest of these measures 3.5 cm x 2.1 cm on axial image 87 of series 8. Small umbilical hernia contains mesenteric fat. No enlarged abdominal lymph nodes. Moderate to large distal colon is present. No ascites or pelvic free fluid. wall thickening of the urinary bladder is present. Prostate gland is enlarged measuring 5.9 cm transverse. Ankylosis of the superior aspect of the left sacroiliac joint is noted. T12 vertebral body compression deformity is unchanged. Significant disc space narrowing at multiple levels of the lumbar spine and visualized thoracic spine noted. Impression: Significant vascular collaterals of the left chest wall and opacification of the azygos vein. Correlate with history of thrombus involvement of the left upper extremity venous vasculature. No definite pulmonary arterial thromboembolic disease identified although evaluation is somewhat limited distally due to suboptimal opacification. Bibasilar costophrenic sulcus atelectasis with small left pleural effusion. Ectasia of the descending thoracic aorta. Aortic valvular calcifications. Correlate for underlying aortic stenosis. Rectus abdominis wall musculature fluid collections of varying densities. These presumably represent hematomas of various stages. Correlate with history. Bilateral main renal arterial stenosis. Diverticulosis. Electronically signed by: Keshawn Handy MD (01/24/2020 10:42 AM) [id number] Course & Med Decision Making: Course & Med Decision Making Pertinent Labs and Imaging studies reviewed. (See chart for details) Patient presents from [facility] with report of altered mental status and swelling and redness to right forearm. It is unclear what patient's baseline mentation is however patient is alert to name only. Patient does follow commands. GCS 14. EKG stable. Labs obtained and posted to chart. WBC elevated. Lactic acid WNL. Troponin slightly elevated. ASA given. CT head/cervical spine without acute process. CT chest/abd/pelvis with bilateral flank hematomas noted. Venous doppler of right arm without DVT. Empiric antibiotic given. Patient requiring admission for further evaluation and treatment. Discussed with Dr. Galvin (hospitalist) who is in agreement with admission. Sergio Disclaimer: Sergio Disclaimer: This electronic medical record was generated, in whole or in part, using a voice recognition dictation system. Departure Departure: Impression: Primary Impression: Altered mental status Qualified Codes: R41.82 - Altered mental status, unspecified Additional Impressions: COVID-19 Right forearm cellulitis Leukocytosis Qualified Codes: D72.829 - Elevated white blood cell count, unspecified Hematoma of flank Elevated troponin Disposition: ADMITTED INPT THIS HOSP Admitting Physician: Joann Galvin Condition: STABLE Referrals: [facility] (PCP) COVID-19 Assessment COVID-19 Patient Risks: Age 65 or older: Yes Sign of co-morbidity: Yes Exp to person + for COVID: Yes Exp to PUI: No Travel from affected area: No Lower respiratory symptoms: No Fever: No Other: Yes PPE Use: Full PPE with N95 mask or PAPR: Yes Critical Care Time Critical care time was 30 minutes which includes time at bedside, spent in discussion of patient's care with specialists and/or family members, with interpretation of laboratory and/or radiological studies and is exclusive of procedures. RAJ GUNTER DO Jan 24, 2020 08:04
[2020-01-24 08:42] LABS: BASO # 0.1 x10^3/uL (0.0-0.2); BASO % 0 % (0-3); EOS % 0 % (0-3); HEMATOCRIT 44.8 % (39.0-53.0); LYMPH # 1.9 x10^3/uL (1.0-4.8); LYMPH % 8 % (24-48); MEAN CORPUSCULAR HEMOGLOBIN 31 pg (25-35); MEAN CORPUSCULAR HGB CONC 34 g/dL (31-37); MEAN CORPUSCULAR VOLUME 93 fL (79-100); MONO # 2.3 x10^3/uL (0.0-1.1); MONO % 10 % (0-9); NEUT % 82 % (31-73); PLATELET COUNT 419 x10^3/uL (140-400); RED BLOOD COUNT 4.81 x10^6/uL (4.30-5.70); RED CELL DISTRIBUTION WIDTH 12.9 % (11.5-14.5); WHITE BLOOD COUNT 23.3 x10^3/uL (4.0-11.0)
[2020-01-24 09:05] LABS: ANION GAP 9 (6-14); BLOOD UREA NITROGEN 28 mg/dL (8-26); BUN/CREATININE RATIO 28 (6-20); CALCIUM 9.1 mg/dL (8.5-10.1); CARBON DIOXIDE 29 mmol/L (21-32); CHLORIDE 96 mmol/L (98-107); GFR 70.5; GLUCOSE 212 mg/dL (70-99); POTASSIUM 4.2 mmol/L (3.5-5.1); SODIUM 134 mmol/L (136-145)
[2020-01-24] MEDS ORDERED: IOHEXOL 350 MG/ML 100 ML VIAL. IV ONE (09:15)
[2020-01-24] MEDS ORDERED: CONTRAST GIVEN. MC PRN (09:15)
[2020-01-24 09:17] LABS: ALBUMIN/GLOBULIN RATIO 0.8 (1.0-1.7); ALK PHOS 81 U/L (46-116); ALT (SGPT) 25 U/L (16-63); AST (SGOT) 16 U/L (15-37); LIPASE 99 U/L (73-393); MAGNESIUM 1.8 mg/dL (1.8-2.4); TOTAL BILIRUBIN 1.1 mg/dL (0.2-1.0); TOTAL PROTEIN 6.6 g/dL (6.4-8.2)
[2020-01-24 09:23] LABS: CLARITY,URINE HAZY; COLOR,URINE AMBER
[2020-01-24 09:24] LABS: BACTERIA,URINE FEW /HPF (0-FEW); BILIRUBIN,URINE NEG (NEG); GLUCOSE,URINE 500 mg/dL (NEG); NITRITE,URINE NEG (NEG); SQUAMOUS EPITHELIAL CELL,UR FEW /LPF; UROBILINOGEN,URINE >=8.0 mg/dL (0.2 mg/dL)
--- NOTE | 2020-01-24 09:26 | RAD ---
Clinical indications: Right arm swelling with erythema. Covid positive. Findings: Duplex sonography (including burnett scale evaluation and color flow and waveform spectral analysis) of the inferior aspect of the right internal jugular vein was performed. Duplex sonography (including burnett scale evaluation and color flow and waveform spectral analysis) of the right subclavian vein as far as it could be visualized prior to it's descent underneath the medial aspect of the clavicle was performed. Duplex sonography (including burnett scale evaluation and color flow and waveform spectral analysis) of the right axillary, brachial, basilic, cephalic, ulnar and radial veins was performed. Normal compressibility and augmentation of color Doppler flow after forearm compression is seen. Color-flow completely fills the lumen of these veins. Therefore, there are no sonographic findings of deep venous thrombosis within these veins. Impression: There are no sonographic findings of deep venous thrombosis within the veins discussed above of the right upper extremity. Electronically signed by: Miguel Kim MD (01/24/2020 9:23 AM) [id number]
--- NOTE | 2020-01-24 10:05 | RAD ---
CT head without contrast. CT cervical spine without contrast. PQRS statement: CT scans at this facility use dose reduction including either automated exposure control, iterative reconstructions, and /or weight based radiation dosing via mA and kV modification when appropriate to reduce radiation dose to as low as reasonably achievable. HISTORY: Confusion. Head and neck pain. COMPARISON: CT head and cervical spine February 16, 2017. CT head findings: There is a 1 cm linear ischemic infarct of the left cerebellum image 8 new from prior imaging in 2018 although the appearance is more typical of a chronic rather than an acute infarct. Generalized brain atrophy stable. No intracranial hemorrhage, mass or hydrocephalus. Cerebral periventricular white matter hypoattenuation is stable likely changes of chronic vessel ischemic disease. Dolichoectasia and calcified plaque intracranial arteries stable. Orbits, mastoids and bones are unremarkable. IMPRESSION: 1. 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 This is new from CT imaging in 2018. 2. Otherwise stable exam. CT cervical spine findings: Craniocervical junction intact. Cervical vertebral body height and alignment intact. No fracture of the cervical spine. Bone demineralization may indicate osteoporosis. Multilevel cervical disc height loss, disc osteophytes and uncovertebral spurring and facet spurring with spinal canal and neural foraminal stenoses. There appears to be interbody osseous fusion due to advanced disc disease or due to prior discectomy at C3-C4 and C4-C5. Soft tissue edema left lower neck and 1 focus of emphysema near the region of the lower left internal jugular vein. IMPRESSION: 1. No acute osseous injury of the cervical spine. 2. Cervical disc disease as described above. 3. 2 cm soft tissue nodule with calcification at the right parotid gland similar to the study from 2018, this could represent a salivary gland tumor orbits are abdominal aorta aneurysm. 4. Soft tissue edema of the left lower neck and a 1 cm focus of soft tissue emphysema at the left neck near the region of the lower left internal jugular vein. This could be sequela of recent vascular access, versus a penetrating injury or soft tissue infection. Electronically signed by: Walt Bull MD (01/24/2020 10:02 AM) [facility]ENTER[facility]ESS[facility]
--- NOTE | 2020-01-24 10:45 | RAD ---
Examination: CT ANGIO CHEST W ABD PEL W/ History: chest and abdominal pain, hx of COVID, bruising Comparison/Correlation: 09/21/2016 CT abdomen and pelvis without contrast Findings: Axial images of the chest, abdomen, and pelvis were obtained following IV contrast. Sagittal and coronal reformatted images were provided. Maximum intensity projection images are provided. Images of the chest were obtained according to pulmonary angiography protocol. Images of the abdomen and pelvis were obtained according to angiographic protocol. There is significant contrast opacification of collaterals involving the left chest wall and the azygos vein. There is no significant opacification of contrast in the superior aspect of the superior vena cava. Left brachiocephalic vein is diminutive. Gas is noted within the left internal jugular vein and left brachiocephalic vein. Correlate for recent line placement attempt. Posterior paratracheal air cyst noted. Mucus within the superior thoracic trachea noted. No pneumothorax. Sternal wires and mediastinal clips are present. Marked [place] coronary arterial calcifications present. Marked mitral annular calcification noted. Marked mitral annular calcification is present. Ascending thoracic diameter 4.2 cm present. Bibasilar costophrenic sulcus atelectasis is present. Small left costophrenic pleural effusion is present. Suboptimal opacification of distal pulmonary arterial vasculature along with respiratory motion limiting evaluation especially of the lung bases. No conclusive thromboembolic disease is identified. Central pulmonary arterial vasculature opacifies well with contrast with no thromboembolic disease identified. Subtle emphysematous involvement of the lung weir noted. Fatty infiltration of the liver is present. Liver is unremarkable. Spleen is unremarkable. Pancreas is normal. Adrenal glands are unremarkable. Bilateral upper pole renal cysts are present. Small lower pole renal cysts are also present and fewer in number. No hydronephrosis. Significant calcific involvement of the abdominal aortic wall is present. Gallbladder fossa is unremarkable. Moderate quantity of stool in the colon is noted. Diverticulosis is present especially in the sigmoid colon. No enlarged abdominal or pelvic lymph nodes. No ascites or pelvic free fluid. Celiac and superior mesenteric arteries are patent. Calcific involvement of the origins noted without significant stenosis. Ectasia of the celiac artery is diffuse. Kinking and stenosis of the proximal inferior mesenteric artery is notable. Marked diffuse calcific involvement of the abdominal aorta is present. No abdominal aortic aneurysm. Mild ectasia of the common iliac arteries bilaterally no significant stenoses of the iliac arterial vasculature. At least 60 percent stenosis of the right main renal artery at its origin and proximal aspect noted. Approximately 60 percent or greater stenosis involving the proximal left main renal artery including torsion is noted. Rim-enhancing fluid collection within the right rectus abdominis muscle at the upper pelvic level is noted on axial image 103. The fluid collection has a density of 27 on this postcontrast exam. Fluid collections of moderately high density and low-density involving the inferior left rectus abdominous muscle extending to the upper pelvic region noted. Largest of these measures 3.5 cm x 2.1 cm on axial image 87 of series 8. Small umbilical hernia contains mesenteric fat. No enlarged abdominal lymph nodes. Moderate to large distal colon is present. No ascites or pelvic free fluid. wall thickening of the urinary bladder is present. Prostate gland is enlarged measuring 5.9 cm transverse. Ankylosis of the superior aspect of the left sacroiliac joint is noted. T12 vertebral body compression deformity is unchanged. Significant disc space narrowing at multiple levels of the lumbar spine and visualized thoracic spine noted. Impression: Significant vascular collaterals of the left chest wall and opacification of the azygos vein. Correlate with history of thrombus involvement of the left upper extremity venous vasculature. No definite pulmonary arterial thromboembolic disease identified although evaluation is somewhat limited distally due to suboptimal opacification. Bibasilar costophrenic sulcus atelectasis with small left pleural effusion. Ectasia of the descending thoracic aorta. Aortic valvular calcifications. Correlate for underlying aortic stenosis. Rectus abdominis wall musculature fluid collections of varying densities. These presumably represent hematomas of various stages. Correlate with history. Bilateral main renal arterial stenosis. Diverticulosis. Electronically signed by: Keshawn Handy MD (01/24/2020 10:42 AM) [id number]
[2020-01-24] MEDS ORDERED: VANCOMYCIN PER PHARMACY MC PRN (11:00)
[2020-01-24] MEDS ORDERED: ASPIRIN ENTERIC COATED 325 MG TABLET.DR. PO ONE (11:00)
[2020-01-24 11:01] LABS: % BANDS 1 % (0-9); % LYMPHS 12 % (24-48); % MONOS 6 % (0-10); % SEGS 81 % (35-66)
[2020-01-24 11:02] LABS: PLT ESTIMATE INCREASED (ADEQUATE); TOXIC GRANULATION PRESENT; TOXIC VACUOLATION PRESENT
[2020-01-24] MEDS ORDERED: VANCOMYCIN 1.5 GM in IV NORMAL SALINE 500ML 500 ML IV ONE (11:30)
[2020-01-24] MEDS ORDERED: cefTRIAXone SODIUM 1 GM VIAL ONE (11:54)
[2020-01-24] MEDS ORDERED: IV NORMAL SALINE 50ML 50 ML ONE (11:54)
--- NOTE | 2020-01-24 11:54 | EKG ---
[address] [address] Test Date: 2020-01-24 Test Time: 08:26:54 Pat Name: NICHO HOOK Department: Room: Gender: M Media Intern: JILLIAN : 1930 Requested By: RAJ GUNTER Order Number: [id number] Reading MD: Measurements Intervals [place] Rate: 78 P: 90 ID: [id number] QRS: -50 QRSD: 128 T: 74 QT: 422 QTc: 485 Interpretive Statements SINUS RHYTHM VENTRICULAR PREMATURE COMPLEX(ES) PROLONGED ID INTERVAL S1,S2,S3 PATTERN NON SPECIFIC INTRAVENTRICULAR BLOCK ABNORMAL ECG RI6.02 No previous ECG available for comparison
[2020-01-24] MEDS ORDERED: DEXTROSE 50% 25 GM / 50ML DISP.SYRIN. IV PRN (12:15)
[2020-01-24] MEDS ORDERED: ONDANSETRON PF 4 MG/2 ML VIAL. IVP PRN (12:15)
[2020-01-24 14:48] VITALS: BP 125/83
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
--- NOTE | 2020-01-24 15:20 | NUR ---
Pharmacy Vancomycin Dosing Note S:Consulted to monitor and dose vancomycin started 01/24/20. O:NICHO HOOK is a 89 year old M with Cellulitis Height: 5 feet, 6 inches Weight: 63.7 kg Other Antibiotics: ceftriaxone 1gm in ER on 01/23 LABS: Last BUN: 28 Last Creatinine: 1 Creatinine Clearance: 46ML/MIN Last WBC: 23.3 Vancomycin Dosing: Loading Dose: 1500 mg x1 Dosing Weight: Actual Target Trough: 10-20 A: Based on: Patient with cellulitis on right forearm with CrCl of 46ml/min. P: 1. Begin Vancomycin 1000 mg IV q24h 2. Follow up Trough level on 01/27/20 at 1130 3. Pharmacy will continue to monitor, follow and adjust therapy as needed. MICHELLE TIPTON, 01/24/20 [id number]
[2020-01-24] MEDS ORDERED: IPRA4AER INH (15:53)
[2020-01-24] MEDS ORDERED: DEXA6TAB6 PO (15:53)
[2020-01-24] MEDS ORDERED: CEPH500C PO (15:53)
[2020-01-24] MEDS ORDERED: TRAM50TA PO (15:53)
[2020-01-24] MEDS: INSULIN LISPRO 300 UNITS/3 ML VIAL. SQ SCH (17:00)
--- NOTE | 2020-01-24 19:00 | NUR ---
Consult for cardiology called.
[2020-01-24 20:04] VITALS: BP 132/53
[2020-01-24] MEDS: MEROPENEM 1 GM in IV NORMAL SALINE 100ML 100 ML IV SCH (21:05)
[2020-01-24] MEDS: IPRATROPIUM/ALBUTEROL 20/100mcg/INH INHALER. INH SCH (21:05)
[2020-01-24 22:37] VITALS: BP 116/73
--- NOTE | 2020-01-24 23:02 | HP ---
ADMIT DATE: 01/24/2020 HISTORY OF PRESENT ILLNESS: The patient is an 89-year-old male patient, a resident at [facility] in [place], who apparently was brought to the Emergency Room with altered mental status. He also has redness to his right forearm that started yesterday. shelter staff reports the patient had an IV to that right forearm that has infiltrated and there was concern for possible thrombophlebitis. The patient had been started on Keflex. The patient reportedly started to have some chest discomfort as well as abdominal pain that started this morning. The patient also noted to have bilateral flank ecchymosis, which he felt the etiology of which is unknown. Nursing staff denies any known falls or trauma. The patient had tested positive for COVID-19 at the care home. He was extensively investigated, has lab work and imaging studies. His white cell count was extremely high at 23,300. His chemistry was mostly unremarkable except for hyperglycemia. His prothrombin time, INR and aPTT are normal. Urinalysis was essentially unremarkable. Has had a CT scan, has had right upper extremity venous Doppler ultrasound, in which there no sonographic finding of deep vein thrombosis within the veins above the right upper extremity. Has had also CT scan of the head and cervical spine and CT scan of the chest, abdomen and pelvis was admitted for further evaluation and treatment. 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 He is also known to have hypertension and prostatitis. PAST SURGICAL HISTORY: Significant for appendectomy and coronary artery bypass graft surgery. ALLERGIES: HE IS ALLERGIC TO PENICILLIN. MEDICATIONS: He is currently on following medications: He is on cephalexin 500 mg 4 times a day, ipratropium bromide, albuterol sulfate 1 puff every 4 hours, tramadol 50 mg 3 times a day and dexamethasone 6 mg daily. FAMILY HISTORY: Unobtainable. SOCIAL HISTORY: He is a resident at [facility] in [place]. The patient really does not give any useful information. When I asked him, he said he lives with his in [place]. REVIEW OF SYSTEMS: The patient is complaining of severe pain in his right forearm. PHYSICAL EXAMINATION: GENERAL: On examining him, he looked if anything plethoric. There was no jaundice, cyanosis or thyromegaly. No jugular venous distention. No lower limb edema. VITAL SIGNS: His heart rate was 76, blood pressure was 125/83, temperature 97.4, respiratory rate was 18 and oxygen saturation was 99%. HEAD, EYES, EARS, NOSE AND THROAT: Normocephalic, atraumatic. NECK: Supple. HEART: Showed normal first and second heart sounds. No gallop, rub or murmur. CHEST: Clear to auscultation. No crepitation or rhonchi. ABDOMEN: Scaphoid, soft, nontender. NEUROLOGIC: He was apparently more awake when I saw him, responding at times appropriately, although he is clearly confused. All his cranial nerves are intact. EXTREMITIES: He moves extremities without difficulty. He has an area of erythema and marked tenderness on the right forearm. He has also ecchymosis or bruises on both flank area. LABORATORY DATA: His lab work on arrival showed a white cell count 23,300, hemoglobin 15, hematocrit 45, MCV 93, and platelet count of 419,000 with a manual differential showed 82% polymorphs, 81% lymphocytes, 10% monocytes. His prothrombin time, INR and aPTT are normal. His chemistry showed that his serum sodium was 134, potassium 4.2, chloride 96, bicarbonate 29, anion gap of 9, BUN 28, creatinine was 1, estimated GFR was 70 mL per minute. His glucose was 212, calcium was 9.1, magnesium was 1.8. Total bilirubin, AST, ALT, alkaline phosphatase were normal. His total protein was 6.6, albumin 3. His first set of troponin was 0.076, second one was 0.083. Has had a venous Doppler ultrasound of his right upper extremity, which showed no evidence of deep vein thrombosis. 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 This is new from CT scan done in 2018. Otherwise, stable exam. CT scan of the cervical spine showed no acute osseous injury to the cervical spine, cervical disk disease, as ____ described. He has a 2 cm soft tissue nodule with calcification of the right parotid gland similar to study from 2018. 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 This could be sequelae of a recent vascular access versus a penetrating injury or soft tissue infection. 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 The patient has no definite pulmonary arterial thromboembolic disease identified, although evaluation is somewhat limited distally due to suboptimal opacification, bibasilar costophrenic sulcus and atelectasis with small left pleural effusion, ectasia of the descending thoracic aorta, aortic valvular calcification correlate with underlying aortic stenosis, rectus abdominis wall musculature, fluid collection of varying density. This presumably represents hematomas of various stages correlate with history. 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 ASSESSMENT AND PLAN: 1. In summary, the patient was admitted with altered mental status. 2. Cellulitis of the right forearm. 3. He has bilateral ecchymosis involving both flank areas. They are large, unlikely to be the site of injection of Lovenox and he was not on that medication in particular. There is no evidence of pancreatitis ____ in the distribution of ____ Prado syndrome. My plan is to treat his cellulitis with vancomycin and start him on insulin sliding scale, given that he is clearly diabetic and on dexamethasone, I will reconcile his medication. He is definitely in severe pain. I will hold the tramadol, cephalexin, continue with dexamethasone and the ipratropium bromide and I will add hydrocodone for pain management. He has 2 sets of cardiac enzymes that are trending upward, probably have to consult the accounting methods analyst tomorrow, although given his age and comorbidities, I am not really sure that he is a candidate for any intervention. SANDI OROZCO MD DR: BERTO/jose JOB#: [id number] / [id number]
--- NOTE | 2020-01-24 23:02 | NUR ---
Pt lying in bed, awake when approached for assessment and med pass. Pt calm but confused, A/O to self and thinks he is "at home now". Received return call from cardiology, they will follow pt and see him tomorrow 01/24. Dr. Waggoner paged for consult, no return call received at this time.
[2020-01-25] MEDS: IPRATROPIUM/ALBUTEROL 20/100mcg/INH INHALER. INH SCH ×6 (04:00→20:33)
[2020-01-25 05:28] VITALS: BP 123/65
[2020-01-25 06:20] LABS: HEMATOCRIT 39.6 % (39.0-53.0); HEMOGLOBIN 13.7 g/dL (13.0-17.5); RED BLOOD COUNT 4.29 x10^6/uL (4.30-5.70); RED CELL DISTRIBUTION WIDTH 12.8 % (11.5-14.5); WHITE BLOOD COUNT 16.3 x10^3/uL (4.0-11.0)
[2020-01-25 06:45] LABS: ALBUMIN 2.5 g/dL (3.4-5.0); ALBUMIN/GLOBULIN RATIO 0.7 (1.0-1.7); CALCIUM 8.1 mg/dL (8.5-10.1); CREATININE 0.7 mg/dL (0.7-1.3); GFR 106.4; POTASSIUM 3.5 mmol/L (3.5-5.1); TOTAL BILIRUBIN 0.9 mg/dL (0.2-1.0); TOTAL PROTEIN 6.3 g/dL (6.4-8.2)
[2020-01-25] MEDS: INSULIN LISPRO 300 UNITS/3 ML VIAL. SQ SCH ×3 (08:00→17:00)
--- NOTE | 2020-01-25 08:19 | PDOC2 ---
CARDIAC CONSULT DATE OF CONSULT DOS: DATE: 01/25/20 TIME: 08:12 REASON FOR CONSULT Reason for Consult Elevated troponin REFERRING PHYSICIAN Referring Physician Dr. Galvin SOURCE Source: Chart review, Patient HPI History of Present Illness This is a 89 yo male who presented from [facility] secondary to altered mental status and right upper extremity redness. intermediate staff reports patient had an IV to that right forearm that had infiltrated and there was concern for possible thrombophlebitis. Had reports of chest, abdominal pain. Trop was check and noted to mildly elevated, which prompted this consult. Patient tested + for COVID at nursing facility last month. Patient presently alert to self only and unable to reports what brought him into the ED. Presently denies any chest pain, palpitations, dizziness, diaphoresis, or nausea/vomiting. Does reports some mild abdominal. PAST MEDICAL HISTORY Cardiovascular: CAD Heme/Onc: Cancer (bladder) Renal/: Benign prostatic enlarg. Endocrine: Diabetes PAST SURGICAL HISTORY Past Surgical History: Appendectomy, CABG FAMILY HISTORY Family History: Family History Unknown SOCIAL HISTORY Smoke: No ALCOHOL: none Drugs: None Lives: Residential CURRENT MEDICATIONS Current Medications Current Medications Fentanyl Citrate (Fentanyl 2ml Vial) 50 mcg 1X ONCE IVP Last administered on 01/24/20at 08:13; Start 01/24/20 at 08:00; Stop 01/24/20 at 08:11; Status DC Famotidine (Pepcid Vial) 20 mg 1X ONCE IVP Last administered on 01/24/20at 08:13; Start 01/24/20 at 08:00; Stop 01/24/20 at 08:11; Status DC Sodium Chloride 1,000 ml @ 1,000 mls/hr 1X ONCE IV Last administered on 01/24/20at 08:13; Start 01/24/20 at 08:00; Stop 01/24/20 at 08:59; Status DC Iohexol (Omnipaque 350 Mg/ml) 100 ml 1X ONCE IV Last administered on 01/24/20at 09:24; Start 01/24/20 at 09:15; Stop 01/24/20 at 09:16; Status DC Info (Do NOT chart on this entry -- for MONITORING) 1 each PRN DAILY PRN MC SEE COMMENTS; Start 01/24/20 at 09:15; Stop 01/26/20 at 09:14 Aspirin (Aspirin Enteric Coated) 325 mg 1X ONCE PO Last administered on 12/8/20at 11:59; Start 01/24/20 at 11:00; Stop 01/24/20 at 11:01; Status DC Ceftriaxone Sodium 1 gm/ Sodium Chloride 50 ml @ 100 mls/hr 1X ONCE IV Last administered on 01/24/20at 12:01; Start 01/24/20 at 11:00; Stop 01/24/20 at 11:29; Status DC Vancomycin HCl (Vanco Per Pharmacy) 1 each PRN DAILY PRN MC SEE COMMENTS Last administered on 01/24/20at 15:09; Start 01/24/20 at 11:00 Vancomycin HCl 1.5 gm/Sodium Chloride 500 ml @ 250 mls/hr 1X ONCE IV Last administered on 01/24/20at 12:01; Start 01/24/20 at 11:30; Stop 01/24/20 at 13:29; Status DC Sodium Chloride 50 ml @ As Directed STK-MED ONCE .ROUTE ; Start 01/24/20 at 11:54; Stop 01/24/20 at 11:54; Status DC Ceftriaxone Sodium (Rocephin) 1 gm STK-MED ONCE .ROUTE ; Start 01/24/20 at 11:54; Stop 01/24/20 at 11:54; Status DC Ondansetron HCl (Zofran) 4 mg PRN Q4HRS PRN IVP NAUSEA/VOMITING; Start 01/24/20 at 12:15; Stop 01/25/20 at 12:14 Insulin Human Lispro (HumaLOG) 0-5 UNITS TIDWMEALS SQ ; Start 01/24/20 at 17:00 Dextrose (Dextrose 50%-Water Syringe) 12.5 gm PRN Q15MIN PRN IV SEE COMMENTS; Start 01/24/20 at 12:15 Vancomycin HCl 1 gm/Sodium Chloride 250 ml @ 250 mls/hr Q24H IV ; Start 01/25/20 at 12:00 Vancomycin HCl (Vancomycin Trough Level) 1 each 1X ONCE MC ; Start 01/26/20 at 11:30; Stop 01/26/20 at 11:31 Dexamethasone (Decadron) 6 mg DAILYWBKFT PO ; Start 01/25/20 at 08:00 Albuterol/ Ipratropium (Combivent Respimat 20-100 Mcg) 1 puff Q4HRS INH Last administered on 01/24/20at 21:05; Start 01/24/20 at 20:00 Meropenem 1 gm/ Sodium Chloride 100 ml @ 200 mls/hr Q12HR IV Last administered on 01/24/20at 21:05; Start 01/24/20 at 21:00 Active Scripts Active Reported Tramadol Hcl (Tramadol HCl) 50 Mg Tablet 50 Mg PO TID Combivent Respimat Inhal (Ipratropium/Albuterol Sulfate) 4 Gm Aer.w.adap 1 Puff INH Q4HRS Decadron (Dexamethasone) 6 Mg Tablet 1 Tab PO ONCE Cephalexin 500 Mg Capsule 1 Cap PO QID ALLERGIES Allergies: Coded Allergies: Penicillins (Verified Allergy, Unknown, 04/02/16) ROS Review of Systems 14 point ROS conducted with pertinent positives noted about in HPI, although limited due to confusion PHYSICAL EXAM General: Alert, Cooperative, No acute distress, Other (oriented to self only ) HEENT: Atraumatic Lungs: Clear to auscultation Heart: Regular rate Abdomen: Soft, No hepatospenomegaly Extremities: No edema, Normal pulses Neuro: Sensation intact Psych/Mental Status: Mood NL MUSCULOSKELETAL: Osteoarthritic changes both hands VITALS Vital Signs Vital Signs Date Time Temp Pulse Resp B/P (MAP) Pulse Ox O2 Delivery O2 Flow Rate FiO2 01/25/20 05:28 99.1 69 20 123/65 (84) 95 Room Air LABS LABS Laboratory Tests Test 01/24/20 08:14 01/24/20 08:24 01/24/20 16:15 01/24/20 16:34 White Blood Count 23.3 x10^3/uL (4.0-11.0) Red Blood Count 4.81 x10^6/uL (4.30-5.70) Hemoglobin 15.0 g/dL (13.0-17.5) Hematocrit 44.8 % (39.0-53.0) Mean Corpuscular Volume 93 fL (79-100) Mean Corpuscular Hemoglobin 31 pg (25-35) Mean Corpuscular Hemoglobin Concent 34 g/dL (31-37) Red Cell Distribution Width 12.9 % (11.5-14.5) Platelet Count 419 x10^3/uL (140-400) Neutrophils (%) (Auto) 82 % (31-73) Lymphocytes (%) (Auto) 8 % (24-48) Monocytes (%) (Auto) 10 % (0-9) Eosinophils (%) (Auto) 0 % (0-3) Basophils (%) (Auto) 0 % (0-3) Neutrophils # (Auto) 19.0 x10^3uL (1.8-7.7) Lymphocytes # (Auto) 1.9 x10^3/uL (1.0-4.8) Monocytes # (Auto) 2.3 x10^3/uL (0.0-1.1) Eosinophils # (Auto) 0.0 x10^3/uL (0.0-0.7) Basophils # (Auto) 0.1 x10^3/uL (0.0-0.2) Segmented Neutrophils % 81 % (35-66) Band Neutrophils % 1 % (0-9) Lymphocytes % 12 % (24-48) Monocytes % 6 % (0-10) Toxic Granulation Present Toxic Vacuolation Present Platelet Estimate Increased (ADEQUATE) Prothrombin Time 10.7 SEC (9.4-11.4) Prothromb Time International Ratio 1.0 (0.9-1.1) Activated Partial Thromboplast Time 24 SEC (23-33) Sodium Level 134 mmol/L (136-145) Potassium Level 4.2 mmol/L (3.5-5.1) Chloride Level 96 mmol/L (98-107) Carbon Dioxide Level 29 mmol/L (21-32) Anion Gap 9 (6-14) Blood Urea Nitrogen 28 mg/dL (8-26) Creatinine 1.0 mg/dL (0.7-1.3) Estimated GFR (Cockcroft-Gault) 70.5 BUN/Creatinine Ratio 28 (6-20) Glucose Level 212 mg/dL (70-99) Lactic Acid Level 1.8 mmol/L (0.4-2.0) Calcium Level 9.1 mg/dL (8.5-10.1) Magnesium Level 1.8 mg/dL (1.8-2.4) Total Bilirubin 1.1 mg/dL (0.2-1.0) Aspartate Amino Transf (AST/SGOT) 16 U/L (15-37) Alanine Aminotransferase (ALT/SGPT) 25 U/L (16-63) Alkaline Phosphatase 81 U/L (46-116) Ammonia < 10 mcmol/L (11-34) Creatine Kinase 26 U/L (39-308) Creatine Kinase MB (Mass) 2.0 ng/mL (0.0-3.6) Creatine Kinase MB Relative Index % (0-4) Troponin I Quantitative 0.076 ng/mL (0-0.055) 0.083 ng/mL (0-0.055) Total Protein 6.6 g/dL (6.4-8.2) Albumin 3.0 g/dL (3.4-5.0) Albumin/Globulin Ratio 0.8 (1.0-1.7) Lipase 99 U/L (73-393) Urine Collection Type U cath Urine Color Hali Urine Clarity Hazy Urine pH 6.5 Urine Specific [place] >=1.030 Urine Protein Neg (NEG-TRACE) Urine Glucose (UA) 500 mg/dL (NEG) Urine Ketones (Stick) Neg mg/dL (NEG) Urine Blood Trace (NEG) Urine Nitrite Neg (NEG) Urine Bilirubin Neg (NEG) Urine Urobilinogen Dipstick >=8.0 mg/dL (0.2 mg/dL) Urine Leukocyte Esterase Neg (NEG) Urine RBC 3-5 /HPF (0-2) Urine WBC 1-4 /HPF (0-4) Urine Squamous Epithelial Cells Few /LPF Urine Bacteria Few /HPF (0-FEW) Urine Mucus Mod /LPF Glucose (Fingerstick) 205 mg/dL (70-99) Test 01/24/20 21:11 01/24/20 21:35 01/25/20 05:45 01/25/20 07:37 Glucose (Fingerstick) 204 mg/dL (70-99) 165 mg/dL (70-99) Troponin I Quantitative 0.087 ng/mL (0-0.055) White Blood Count 16.3 x10^3/uL (4.0-11.0) Red Blood Count 4.29 x10^6/uL (4.30-5.70) Hemoglobin 13.7 g/dL (13.0-17.5) Hematocrit 39.6 % (39.0-53.0) Mean Corpuscular Volume 92 fL (79-100) Mean Corpuscular Hemoglobin 32 pg (25-35) Mean Corpuscular Hemoglobin Concent 35 g/dL (31-37) Red Cell Distribution Width 12.8 % (11.5-14.5) Platelet Count 349 x10^3/uL (140-400) Sodium Level 133 mmol/L (136-145) Potassium Level 3.5 mmol/L (3.5-5.1) Chloride Level 99 mmol/L (98-107) Carbon Dioxide Level 23 mmol/L (21-32) Anion Gap 11 (6-14) Blood Urea Nitrogen 27 mg/dL (8-26) Creatinine 0.7 mg/dL (0.7-1.3) Estimated GFR (Cockcroft-Gault) 106.4 BUN/Creatinine Ratio 39 (6-20) Glucose Level 155 mg/dL (70-99) Calcium Level 8.1 mg/dL (8.5-10.1) Total Bilirubin 0.9 mg/dL (0.2-1.0) Aspartate Amino Transf (AST/SGOT) 13 U/L (15-37) Alanine Aminotransferase (ALT/SGPT) 20 U/L (16-63) Alkaline Phosphatase 70 U/L (46-116) Total Protein 6.3 g/dL (6.4-8.2) Albumin 2.5 g/dL (3.4-5.0) Albumin/Globulin Ratio 0.7 (1.0-1.7) ASSESSMENT/PLAN Assessment/Plan 1. Encephalopathy 2. RUE cellulitis secondary to IV infiltration. US negative for DVT 3. Recent COVID + 4. Leukocytosis 5. Mild troponin elevation; highest 0.08. Denies any CP 6. CAD; s/p previous CABG. Further details unknown 7. Diabetes, II Recommendations Add ASA therapy Trend troponin Lipids pending Consider outpatient echo to assess LV systolic function Antibiotic therapy as per PCP DEANN RAM APRN Jan 25, 2020 08:19
[2020-01-25] MEDS: DEXAMETHASONE 4 MG TABLET PO SCH (08:57)
[2020-01-25] MEDS: MEROPENEM 1 GM in IV NORMAL SALINE 100ML 100 ML IV SCH ×2 (08:58→20:33)
[2020-01-25] MEDS: ASPIRIN ENTERIC COATED 81 MG TABLET.DR. PO SCH (08:59)
[2020-01-25 11:04] VITALS: BP 98/78
[2020-01-25] MEDS ORDERED: VANCOMYCIN 1 GM in IV NORMAL SALINE 250ML 250 ML IV SCH (12:00)
[2020-01-25 15:39] VITALS: BP 97/66
[2020-01-25 19:00] VITALS: BP 124/91
[2020-01-25] MEDS: LACTOBACILLUS RHAMNOSUS GG 1 CAPSULE. PO SCH (20:32)
--- NOTE | 2020-01-25 20:50 | PN ---
DATE: 01/25/2020 ATTENDING PHYSICIAN: Joann Galvin MD SUBJECTIVE: The patient is comfortable. He is awake. He had altered mentation yesterday. He was started on antibiotics for his cellulitis. He is eating lunch independently and seems to be in no acute distress. OBJECTIVE FINDINGS: VITAL SIGNS: Blood pressure today is 123/65, pulse is 69 and regular, temperature 97.0 degrees Fahrenheit, and his oxygen saturations are maintained at 95% on room air. HEENT: Head is without trauma. Pupils are reactive. Sclerae are nonicteric. The oropharynx is clear. NECK: Supple. LUNGS: Good breath sounds. CARDIOVASCULAR: Showed regular heart tones. No gallops. ABDOMEN: Soft. EXTREMITIES: Showed redness and erythema along the volar surface of the right forearm. There is an adherent scab in the middle infection. The redness and erythema is not as pronounced on the left arm. SKIN: Warm and dry. NEUROLOGIC: Finally, pleasantly confused. LABORATORY DATA: Reviewed. Nonfasting blood sugar 239. Today, hemoglobin is maintained at 13.7 g/dL with a white count of 16,300 down from 23,000. Cultures of blood showed no growth after 24 hours. ASSESSMENT: 1. An 89-year-old gentleman, [facility] patient with cellulitis of both forearms, improved. 2. Altered mentation, improved. 3. History of bladder neoplasm. 4. Heart disease with coronary artery disease without angina. 5. Hypertrophic osteoarthropathy, multiple sites. 6. Essential hypertension. 7. Prostatitis. PLAN: 1. Continue antibiotics as ordered. 2. Diet as tolerated. 3. Medications reviewed. 4. Tentative discharge plans back to the [facility] once inflammation and infection subside. CLEMENT WESTON MD DR: FABI/jose JOB#: [id number] / [id number]
[2020-01-26] VITALS: BP 132/88
[2020-01-26] MEDS: IPRATROPIUM/ALBUTEROL 20/100mcg/INH INHALER. INH SCH ×6 (04:00→20:00)
--- NOTE | 2020-01-26 06:01 | CONS ---
DATE OF CONSULTATION: NEUROLOGY CONSULTATION REFERRING PHYSICIAN: Dr. Galvin/Dr. Rogers REASON FOR CONSULTATION: Acute mental status changes. HISTORY OF PRESENT ILLNESS: This is an 89-year-old right-handed male who was admitted through Emergency Room after he presented with chief complaints of severe pain and redness of the right forearm along with mental status changes. The patient, who [facility] [place], was found to be confused and disoriented. He was brought to Emergency Room for further evaluation. The patient did sustain a fall over there. Subsequently, he complains of pain confined to the right upper extremity. The patient was found to have the redness and tenderness over the right forearm, probably represent cellulitis. The etiology uncertain; however, the patient denies any trauma to the right upper extremity. Noticed the patient was tested positive for COVID-19 at the Emergency Room. The patient is unable to provide any concrete information. 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 CT of the cervical spine revealed degenerative disk disease at C3-C4 and C4-C5. A 2 cm soft tissue nodule at the right parotid gland was also noticed in 2018 and today, which has been stable. PAST MEDICAL HISTORY: Significant for coronary artery disease, diabetes mellitus type 2, recent COVID-19 infection, bladder cancer, atherosclerotic heart disease, osteoarthritis, hypertension and prostatitis, emphysema. PAST SURGICAL HISTORY: Significant for appendectomy, coronary artery bypass graft surgery. FAMILY HISTORY: Unobtainable. SOCIAL HISTORY: The patient is a resident at [facility] in [place]. He denies smoking, alcohol drinking or illicit drug use. CURRENT HOME MEDICATIONS: The patient has been on Keflex 500 mg 4 times daily for possible underlying cellulitis to the right upper extremity, albuterol inhaler, dexamethasone 6 mg p.o. daily. ALLERGIES: No known drug allergies. REVIEW OF SYSTEMS: A 10-point review of systems was performed as mentioned above in the history of present illness consistent with a new onset of redness and tenderness over the right forearm, probably represent cellulitis. PHYSICAL EXAMINATION: GENERAL: Well-developed, well-nourished male, not in acute distress. He weighs 64.4 kilos. VITAL SIGNS: Blood pressure 126/65, respiratory rate 20, pulse is 69 and regular, temperature 99.1, oxygen saturation is 95% on room air. HEENT: Normocephalic, atraumatic, otherwise unremarkable. NECK: Supple. Negative for carotid bruit, lymphadenopathy or thyromegaly. LUNGS: With diminished breath sounds bilaterally. CARDIOVASCULAR: Regular rate and rhythm; normal S1, S2. ABDOMEN: Soft. Bowel sounds positive. EXTREMITIES: Positive for tenderness and cellulitis of the ____ forearm. NEUROLOGIC EXAMINATION: MENTAL STATUS: The patient is alert and awake. He knows he is in the hospital. Memory, language and abstract thinking are fair. The patient denies hallucination or delusion. CRANIAL NERVES: Visual weir appeared to be intact. The pupils are equal and reactive to light and accommodation. The hearing is intact bilaterally. The palate is elevated symmetrically. Sternocleidomastoid muscles are powerful bilaterally. The patient shrugs his shoulders symmetrically and protrudes his tongue without fasciculation or atrophy. MOTOR EXAMINATION: No focal muscle bulk was seen. The tone is normal. The strength is 4/5 throughout. SENSORY EXAMINATION: Revealed normal pinprick, light touch senses throughout. Deep tendon reflexes were symmetric and hypoactive with absent Achilles responses. GAIT: Not tested. LABORATORY DATA: CBC revealed white blood cells of 16.3 thousand, dropped from 23.3 thousand from yesterday; hemoglobin is 13.7; hematocrit 39.6; platelet count 349,000. Chemistry: Sodium 133, potassium 3.5, chloride 99, CO2 of 23, BUN 27, creatinine 0.7, glucose 155. Normal lactic acid. Calcium 8.1, magnesium 1.8. Liver enzymes are normal. Ammonia level is normal range. Cardiac enzymes: His troponin level of 0.094. NPB is 1290. Cholesterol is 230 with normal triglyceride, elevated LDL and normal HDL at 60. Coagulation: Normal PT/PTT. Urinalysis negative for urinary tract infections. DIAGNOSTIC DATA: Venous ultrasound of the upper extremities revealed no venous thrombosis. Nonenhanced head CT scan revealed old left cerebellar infarct, otherwise unremarkable. CT of the cervical spine revealed no acute process, but is positive for degenerative disk disease at C3-C4 and C4-C6, 2 cm soft tissue nodule at the right parotid gland. IMPRESSION: 1. Acute encephalopathy, probably infectious -- improved. 2. Cellulitis of the right forearm. 3. Multiple medical problems include diabetes mellitus type 2, bladder cancer, hypertension, osteoarthritis. RECOMMENDATIONS: 1. Continue with current management initiated by Dr. Galvin and Dr. Rogers for cellulitis. 2. Continue with current home medications. 3. Physical therapy evaluation. 4. Elevated troponin level, probably due to previous heart disease, recent positive COVID-19 infection, history of coronary artery disease. Continue with current management initiated by Dr. Galvin/Dr Rogers. 5. Cardiology consult for elevated troponin level and continue with current management for cellulitis. M Yelena AUSTIN MD DR: LYN/jose JOB#: [id number] / [id number]
[2020-01-26 07:45] VITALS: BP 119/92
[2020-01-26] MEDS: ASPIRIN ENTERIC COATED 81 MG TABLET.DR. PO SCH (08:13)
[2020-01-26] MEDS: LACTOBACILLUS RHAMNOSUS GG 1 CAPSULE. PO SCH ×2 (08:14→20:44)
[2020-01-26] MEDS: DEXAMETHASONE 4 MG TABLET PO SCH (08:14)
[2020-01-26] MEDS: MEROPENEM 1 GM in IV NORMAL SALINE 100ML 100 ML IV SCH ×2 (08:16→21:03)
[2020-01-26] MEDS: INSULIN LISPRO 300 UNITS/3 ML VIAL. SQ SCH ×3 (08:17→16:43)
--- NOTE | 2020-01-26 09:27 | PN ---
DATE: SUBJECTIVE: The patient denies any new medical or neurological complaints; however, he continues to have pain confined to the right forearm. OBJECTIVE: GENERAL: Well-developed, well-nourished male, not in acute distress. VITAL SIGNS: Blood pressure 119/92, respiratory rate 20, pulse is 79, oxygen saturation is 98% on room air, temperature 97.5. HEENT: Normocephalic and atraumatic, otherwise unremarkable. NECK: Supple. Negative for carotid bruit, lymphadenopathy or thyromegaly. LUNGS: Clear to A and P. CARDIOVASCULAR: Regular rate and rhythm, normal S1 and S2. ABDOMEN: Soft. Bowel sounds positive. EXTREMITIES: Negative for cyanosis, clubbing or edema except for redness and mild focal swelling of the right forearm. NEUROLOGICAL EXAM: Mental Status: The patient is alert and oriented to himself and he knows he is in the hospital. He denies hallucination or delusion. Cranial nerves are intact. Motor examination: No focal muscle bulk was seen. The strength is 4/5 throughout. Sensory examination revealed normal pinprick and light touch senses throughout. Deep tendon reflexes were symmetric and hypoactive with absent Achilles responses. Gait not tested. LABORATORY DATA: Blood culture revealed no growth day #1. IMPRESSION: 1. Acute encephalopathy - improved. 2. Cellulitis of the right forearm. 3. Multiple medical problems include diabetes mellitus type 2, bladder cancer, hypertension, and osteoarthritis. RECOMMENDATIONS: 1. Continue with current management initiated by Dr. Rogers. 2. Physical therapy evaluation. M Yelena AUSTIN MD DR: LYN/jose JOB#: [id number] / [id number]
[2020-01-26 10:53] VITALS: BP 105/77
[2020-01-26] MEDS: traMADol 50 MG TABLET PO PRN ×2 (11:43→20:44)
--- NOTE | 2020-01-26 13:14 | PN ---
DATE: 01/26/2020 ATTENDING PHYSICIAN: Dr. Galvin. SUBJECTIVE: He is comfortable, pleasantly confused. He has no respiratory distress. He is on antibiotics for cellulitis. I believe we do not need the vancomycin. We will continue the meropenem. He is eating independently. OBJECTIVE FINDINGS: VITAL SIGNS: Blood pressure is 119/92, pulse 80 and regular, temperature 97.5 degrees Fahrenheit, oxygen saturation 98% on room air. HEENT: Head is without trauma. Pupils are reactive. Sclerae are nonicteric. Oropharynx is clear. NECK: Supple. LUNGS: Good breath sounds. CARDIOVASCULAR: Showed regular heart tones. No gallops. ABDOMEN: Soft, no guarding, flank bilateral ecchymoses on bilateral flanks. EXTREMITIES: He still has residual redness, erythema anterior surface of the right arm. SKIN: Otherwise warm and dry. ASSESSMENT: 1. An 89-year-old gentleman with cellulitis of both arms. 2. Altered mentation, improved. 3. History of bladder neoplasm. 4. Bilateral ecchymosis of flank, classic signs of Harris-Kim sign, no evidence of retroperitoneal bleed, most likely related to trauma. 5. Hypertrophic osteoarthropathy. 6. Essential hypertension. 7. Prostatitis. PLAN: 1. Continue meropenem as ordered. 2. We can discontinue vancomycin. 3. Await culture ID and sensitivity. 4. Medications reviewed. 5. Continue COVID isolation. CLEMENT WSETON MD DR: FABI/jose JOB#: [id number] / [id number]
[2020-01-26 14:37] VITALS: BP 99/66
[2020-01-26 19:46] VITALS: BP 106/70
--- NOTE | 2020-01-27 01:33 | NUR ---
Pt laying in bed when approached for assessment. Pt orientated to self only. Pt was confused when asked questions on pain level but winced when assisted w/ ADL's. Pt received PRN Tramadol as indicated. HS meds where given whole w/o difficulty. Pt is pleasant and cooperative when directed w/ cares. Bed alarm is on and pt is resting comfortably.
[2020-01-27] MEDS: IPRATROPIUM/ALBUTEROL 20/100mcg/INH INHALER. INH SCH ×3 (04:00→08:00)
[2020-01-27 05:57] VITALS: BP 117/72
[2020-01-27] MEDS: DEXAMETHASONE 4 MG TABLET PO SCH (08:02)
[2020-01-27] MEDS: LACTOBACILLUS RHAMNOSUS GG 1 CAPSULE. PO SCH (08:02)
[2020-01-27] MEDS: ASPIRIN ENTERIC COATED 81 MG TABLET.DR. PO SCH (08:02)
[2020-01-27] MEDS: INSULIN LISPRO 300 UNITS/3 ML VIAL. SQ SCH (08:13)
[2020-01-27] MEDS: MEROPENEM 1 GM in IV NORMAL SALINE 100ML 100 ML IV SCH (08:14)
--- NOTE | 2020-01-27 10:51 | NUR ---
DISCHARGE NOTE-Pt discharges today to [facility] in [place]. He is returning to this facility. Report called to Mary at 1015. [facility] contacted for non-emergent transport at 1024. EMS arrives at 1043. PIV is discontinued, pt is on RA. He is dressed in street clothes, et ambulates with assist x1 et FWW to the cot from the room. All possessions et discharge packet sent with EMS personnel at this time.
--- NOTE | 2020-01-27 13:33 | DS ---
DATE OF DISCHARGE: 01/27/2020 ATTENDING PHYSICIAN: Dr. Galvin. FINAL DISCHARGE DIAGNOSES: 1. Cellulitis of both forearms. 2. Altered mentation, resolved. 3. History of bladder neoplasm. 4. Bilateral flank ecchymosis, Harris Kim sign consistent with trauma. 5. Hypertrophic osteoarthropathy. 6. Essential hypertension. 7. History of prostatism. HISTORY AND PHYSICAL: This is an 89-year-old gentleman, [facility] resident with cellulitis of both arms. He had been and COVID positive for the last 2 weeks. He was sent here for treatment of his cellulitis. He also had altered mentation. PHYSICAL EXAMINATION: Please see the dictated note. PERTINENT LABORATORY AND X-RAY STUDIES: Obligatory imaging studies, CT of the head, chest and abdomen showed severe vascular calcifications, ectasia of the aorta, no acute findings identified. CT of the head showed no cervical spine disease. 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 Ultrasound of the forearm showed no evidence of DVT. COURSE IN THE HOSPITAL: The patient had a cellulitis. He was treated with vancomycin for 4 days with improvement and declined of his erythema and swelling. Diet was advanced. Neurology consultation and Cardiology consultation was entertained, their recommendation on the chart. He did well. He was back to his baseline. He was sitting up and eating. He had adequate oxygen saturations without any pulmonary symptoms. On the fifth hospital day, the patient was discharged back to [facility] for further convalescence. He will continue his ipratropium and Ultram doses. In addition, I recommended 7 more days of Bactrim-DS 1 p.o. b.i.d. and doxycycline 100 mg p.o. b.i.d. He remains a DNR per advanced directives. He was discharged then from our hospital in stable condition with explicit instructions and followup care. CLEMENT WESTON MD DR: FABI/jose JOB#: [id number] / [id number] SANDI Stubbs MD
--- NOTE | 2020-01-30 01:50 | PN ---
DATE: 01/27/2020 SUBJECTIVE: The patient denies any new medical or neurological complaints. He continues to have pain confined to the right mid forearm. OBJECTIVE: GENERAL: Well-developed, well-nourished male, not in acute distress. VITAL SIGNS: Blood pressure 117/72, respiratory rate is 20, pulse is 66, temperature 98.5, oxygen saturation 98% on room air. HEENT: Normocephalic, atraumatic, otherwise unremarkable. NECK: Supple. Negative for carotid bruit, lymphadenopathy or thyromegaly. LUNGS: Clear to A and P. CARDIOVASCULAR: Regular rate and rhythm, normal S1, S2. There is no S3, S4 or murmurs. ABDOMEN: Soft. Bowel sounds positive. EXTREMITIES: Negative for cyanosis, clubbing or pitting edema, but there is mild tenderness with mild focal swelling and mild redness confined to the mid right forearm. NEUROLOGICAL EXAMINATION: Mental Status: The patient is alert and oriented x 2. Speech is more fluent. There are no language dysfunctions. He denies hallucination or delusion. Motor examination: No focal muscle bulk was seen. The tone is normal. The strength is 4/5 throughout. Sensory examination revealed normal pinprick, light touch, vibratory and position senses. Deep tendon reflexes were asymmetric and hypoactive with absent Achilles responses. Gait not tested. IMPRESSION: 1. Acute encephalopathy -- improved. 2. Cellulitis of the right forearm. 3. Multiple medical problems include diabetes mellitus type 2, bladder cancer, hypertension and osteoarthritis. RECOMMENDATIONS: 1. Continue with current management initiated by Dr. Rogers. 2. Physical therapy evaluation. M Yelena AUSTIN MD DR: LYN/jose JOB#: [id number] / [id number]
== END 2020-01-27 10:54 | DRG 871 ==
LOC: ER 07:52 → 1 SOUTH 11:43
PROVIDERS: ADMIT Internal Medicine; ATTEND Hospitalist
DX: A41.89 Other specified sepsis (principal); U07.1 COVID-19; G93.40 Encephalopathy, unspecified; L03.113 Cellulitis of right upper limb; L03.114 Cellulitis of left upper limb; E11.65 Type 2 diabetes mellitus with hyperglycemia; I10 Essential (primary) hypertension; I25.10 Atherosclerotic heart disease of native coronary artery without angina pectoris; J43.9 Emphysema, unspecified; K57.90 Diverticulosis of intestine, part unspecified, without perforation or abscess without bleeding; M19.90 Unspecified osteoarthritis, unspecified site; M81.0 Age-related osteoporosis without current pathological fracture; N40.0 Benign prostatic hyperplasia without lower urinary tract symptoms; N41.9 Inflammatory disease of prostate, unspecified; S30.1XXA Contusion of abdominal wall, initial encounter; X58.XXXA Exposure to other specified factors, initial encounter; Z66 Do not resuscitate; Y93.89 Activity, other specified; Y92.89 Other specified places as the place of occurrence of the external cause; Y99.8 Other external cause status; Z85.51 Personal history of malignant neoplasm of bladder; Z86.73 Personal history of transient ischemic attack (TIA), and cerebral infarction without residual deficits; Z90.49 Acquired absence of other specified parts of digestive tract; Z95.1 Presence of aortocoronary bypass graft; Z88.0 Allergy status to penicillin
CPT/HCPCS: 36415; 70450; 71275; 72125; 74177; 80053; 80061; 81001; 82140; 82553; 82947; 83605; 83690; 83735; 84484; 85007; 85025; 85027; 85610; 85730; 87040; 87205; 93005; 93971; 96361; 96365; 96368; 96375; 97163; J0696; J1815; J2185; J3010; J3370; J3490; J7040; J7050; J8540; Q9967; U0003; 97110; 97530; 99291-25; J7030